=== PATIENT | male | born 1940 | race Caucasian/White ===

== ENCOUNTER 2020-03-10 13:46 | Outpatient (CLI) | payer MEDICARE, SELFPAY ==
--- NOTE | ~2020-03-10 | XR_ITS ---
EXAMINATION: XR chest 2V DATE: 03/10/2020 15:39 INDICATION: Preoperative evaluation with cardiovascular risk factor of hypertension. TECHNIQUE: PA and lateral views of the chest were obtained. COMPARISON: None FINDINGS: Elevation of the left hemidiaphragm with streaky atelectasis/scarring at the lingula. Right lung is c lear. No pulmonary edema, pleural effusion or pneumothorax. The cardiomediastinal silhouette is kala l. Atherosclerotic coronary artery calcification versus stenting. Mild thoracic kyphosis with mild sp ondylosis. IMPRESSION: 1. Atelectasis/scarring at the lingula with mild elevation of the left hemidiaphragm. Reviewed, dictated and finalized at location A. IMPRESSION: 1. Atelectasis/scarring at the lingula with mild elevation of the left hemidiap hragm.
--- NOTE | 2020-03-10 15:09 | ECG_ITS ---
Measurements Intervals [place] Rate: 58 P: 10 SD: 262 QRS: -45 QRSD: 144 T: 30 QT: 426 QTc: 420 Interpretive Statements SINUS BRADYCARDIA WITH FIRST DEGREE AV BLOCK RIGHT BUNDLE BRANCH BLOCK LEFT ANTERIOR FASCICULAR BLOCK VOLTAGE CRITERIA FOR LVH BASELINE ARTIFACT- I, II, III, AVR, AVL ABNORMAL ECG Electronically Signed On 03-10-2020 15:52:07 CDT by Rod Maldonado D.O.
[2020-03-10 15:31] LABS: Basophils Percent Auto 0.4 % (0.2-1.2); Eosinophils Absolute Auto 0.1 K/mm3 (0-0.3); Eosinophils Percent Auto 2.1 % (0-4.4); Hematocrit 46.1 % (42.0-52.0); Immature Granulocyte Absolute 0.01 K/mm3 (0.00-0.031); Immature Granulocyte Percent A 0.2 % (0-0.5); Lymphocytes Absolute Auto 1.47 K/mm3 (0.9-3.2); Lymphocytes Percent Auto 28.1 % (18.3-44.2); Mean Corpuscular HGB Conc 34.7 g/dl (32-36); Mean Corpuscular Hemoglobin 33.5 pg (26-34); Mean Corpuscular Volume 96.4 fl (80-100); Mean Platelet Volume 9.4 fl (7.4-10.4); Monocytes Absolute Auto 0.5 K/mm3 (0.1-0.6); Monocytes Percent Auto 10.3 % (2.6-8.5); Neutrophils Absolute Auto 3.1 K/mm3 (1.3-6.7); Neutrophils Percent Auto 58.9 % (45.5-73.1); Platelet Count Result 157 k/mm3 (150-375); Red Blood Count 4.78 M/mm3 (4.6-6.20); Red Cell Distribution Width 12.6 % (11.5-14.5); White Blood Count 5.2 K/mm3 (4.5-10.0)
[2020-03-10 15:43] LABS: Urine Cotinine NEGATIVE
[2020-03-10 15:43] LABS: Albumin Level 4.6 g/dL (3.5-5.1); Anion Gap 9 mmol/L (8-16); Blood Urea Nitrogen 20 mg/dL (9-20); Calcium 9.8 mg/dL (8.4-10.2); Carbon Dioxide 26 mmol/L (22-30); Chloride 101 mmol/L (98-107); Estimated Glomerular Filt Rate 58; Glucose 88 mg/dL (75-110); Potassium 4.9 mmol/L (3.4-5.0); Sodium 136 mmol/L (137-145)
[2020-03-10 16:15] LABS: Hemoglobin A1C 5.1 % (<5.7)
== END 2020-03-10 13:47 | disposition home or self-care (01) ==
PROVIDERS: PCP Family Medicine; Visit Provider Orthopaedic Surgery
DX: M16.12 Unilateral primary osteoarthritis, left hip (principal); Z01.818 Encounter for other preprocedural examination; R91.8 Other nonspecific abnormal finding of lung field; I45.10 Unspecified right bundle-branch block
CPT/HCPCS: 71046; 80048; 80307; 82040; 83036; 85025; 87070; 93005

== ENCOUNTER 2020-03-20 09:52 | Outpatient (CLI) | payer MEDICARE, SELFPAY ==
--- NOTE | 2020-03-20 | ECHO_ITS ---
Patient Info Name: Kev Taylor Age: 79 years : 1940 Gender: Male Ht: 69 in Wt: 195 lbs BSA: 2.10 m2 BP: 167 / 92 mmHg Exam Date: 03/20/2020 10:42 AM Exam Location: [facility] Patient Status: Outpatient Admit Date: 03/20/2020 Staff Ordering Physician: PHYSICIAN NOT ON STAFF, NONSTAFF Senior Medical Transcriptionist: Megan Rees RDCS Attending Provider: PHYSICIAN NOT ON STAFF, NONSTAFF Exam Type: CA echo doppler color flow Study Info Indications I35.0 - Nonrheumatic aortic (valve) stenosis Complete two-dimensional, color flow and Doppler transthoracic echocardiogram is performed. Summary 1. Complete two-dimensional, color flow and Doppler transthoracic echocardiogram is performed. 2. Left ventricular chamber dimension is normal. 3. Left ventricular systolic function is normal, estimated at 60-65%. 4. There is mildly increased left ventricular wall thickness. 5. The left ventricular diastolic function is grade I diastolic dysfunction. 6. E/e' 13 is mildly elevated. 7. Global longitudinal strain is abnormal at -15.0%. 8. Left atrial chamber dimension is mildly enlarged. 9. There is severe aortic valve sclerosis. 10. There is severe aortic valve stenosis with a peak velocity of 262 cm/s, mean gradient of 14 mmHg, and aortic valve area of 0.8 cm2. 11. There is mild aortic valve regurgitation. 12. There is mild to moderate mitral valve regurgitation. 13. There is mild tricuspid valve regurgitation. 14. No pulmonary hypertension, estimated pulmonary arterial systolic pressure is 35 mmHg. 15. There is trace pulmonic regurgitation. Left Ventricle E/e' 13 is mildly elevated. Global longitudinal strain is abnormal at -15.0%. Left ventricular chamber dimension is normal. Left ventricular systolic function is normal, estimated at 60-65%. There is mildly increased left ventricular wall thickness. The left ventricular diastolic function is grade I diastolic dysfunction. Right Ventricle Right ventricular chamber dimension is normal. Right ventricular systolic function is normal. Left Atria Left atrial chamber dimension is mildly enlarged. Right Atria Right atrial chamber dimension is normal. Aortic Valve The aortic valve is trileaflet. There is severe aortic valve sclerosis. There is severe aortic valve stenosis with a peak velocity of 262 cm/s, mean gradient of 14 mmHg, and aortic valve area of 0.8 cm2. There is mild aortic valve regurgitation. Pulmonic Valve There is trace pulmonic regurgitation. Mitral Valve There is no mitral valve stenosis. There is mild to moderate mitral valve regurgitation. Tricuspid Valve There is mild tricuspid valve regurgitation. No pulmonary hypertension, estimated pulmonary arterial systolic pressure is 35 mmHg. Pericardium/Pleural There is no pericardial effusion. Inferior Vena Cava Normal inferior vena cava with >50% collapse upon inspiration consistent with normal right atrial pressure, 5 mmHg. Aorta The aortic root size at the sinus of Valsalva is not well visualized. Left Ventricular Outflow Tract Name Value Normal LVOT 2D LVOT Diameter 2.0 cm LVOT Doppler
== END 2020-03-20 09:53 | disposition home or self-care (01) ==
PROVIDERS: PCP Family Medicine
DX: I35.1 Nonrheumatic aortic (valve) insufficiency (principal); I36.1 Nonrheumatic tricuspid (valve) insufficiency; I34.0 Nonrheumatic mitral (valve) insufficiency
CPT/HCPCS: 93306

== ENCOUNTER 2020-03-24 01:26 | Outpatient (CLI) | payer MEDICARE, SELFPAY ==
[2020-03-24 16:30] LABS: SARS-CoV-2 RNA PCR Negative
== END 2020-03-24 01:27 | disposition home or self-care (01) ==
LOC: ANHCOVIDDT 01:27
PROVIDERS: PCP Family Medicine; Visit Provider Orthopaedic Surgery
DX: Z01.812 Encounter for preprocedural laboratory examination (principal); Z20.828 Contact with and (suspected) exposure to other viral communicable diseases
CPT/HCPCS: 87635; C9803; U0003

== ENCOUNTER 2020-03-27 01:43 | Day surgery (SDC) | payer MEDICARE, SELFPAY ==
[2020-03-10 14:11] VITALS: BMI 29.9
[2020-03-10 14:13] VITALS: BP 144/74; PULSE 60; RESP 18; TEMP 37; O2SAT 98
--- NOTE | 2020-03-26 09:55 | P.PNAN_ITS ---
Anes - Eval Pre Procedure Procedure: Operation Date: 03/27/20 07:30 Proposed Procedures p Left Total Hip Arthroplasty, Anterior Approach - Twin Bernstein MD Date/Time: 03/26/20 09:55 Pre Op Diagnosis: OA left hip Patient Data Age: 79 Gender: M Height: 1.73 m Weight: 89.2 kg Last Vital Signs Temp 37.0 C 03/10/20 14:13 Pulse 60 03/10/20 14:13 Resp 18 03/10/20 14:13 BP 144/74 H 03/10/20 14:13 Pulse Ox 98 03/10/20 14:13 Allergies Allergy/AdvReac Type Severity Reaction Status Date / Time No Known Allergies Allergy Unverified 03/13/20 09:23 Home Medications Medication Instructions Recorded Confirmed Type rosuvastatin 10 mg tablet 10 mg PO DAILY #90 tablet 12/10/19 03/13/20 Rx omeprazole 20 mg capsule,delayed 20 mg PO DAILY #90 cap 02/29/20 03/13/20 Rx release L.acid-L.casei-B.bif-B.shady-FOS 1 cap PO DAILY 03/10/20 03/13/20 History [Probiotic Blend] amlodipine 10 mg PO QAM 03/10/20 03/13/20 History aspirin [Aspirin Low Dose] 81 mg PO DAILY 03/10/20 03/13/20 History celecoxib 200 mg PO DAILY PRN 03/10/20 03/13/20 History ferrous sulfate [iron] 325 mg PO DAILY 03/10/20 03/13/20 History lutein 20 mg PO DAILY 03/10/20 03/13/20 History omega-3 fatty acids [Fish Oil 1,000 mg PO DAILY 03/10/20 03/13/20 History Concentrate] oregano oil 1,500 mg PO DAILY 03/10/20 03/13/20 History tadalafil [Cialis] 5 mg PO DAILY PRN 03/10/20 03/13/20 History Patient hx anesthesia problems: none Family hx anesthesia problems: none PMFSH Past Medical History Medical History (Updated 03/26/20 @ 09:56 by Venkatesh Navarrete, [employer]) GERD (gastroesophageal reflux disease) HTN (hypertension) Mixed hyperlipidemia Nonrheumatic aortic (valve) stenosis Trigger finger (acquired) Surgical History Surgical History History of total left knee replacement History of total right hip arthroplasty Family History Family History Sibling Cerebrovascular accident Patient's brother is Social History Social History Social History: Single Smoking status: Never smoker Second hand tobacco smoke exposure: No Alcohol intake: current Drinks per week: 4 Substance use: never Substance use type: does not use Additional living arrangements comments: [employer] [employer] Gender identity (if verbalized by the patient): Male Spiritual care concerns: No Exam Day of Procedure 03/26/20 09:55
--- NOTE | 2020-03-26 15:09 | PM.IMHP ---
H&P: HPI History of Present Illness Date/Time: 03/26/20 15:09 Chief complaint: OA left hip Narrative: Kev Taylor is a 79 year old male Who presents at this time to undergo left total hip arthroplasty he has undergone right total hip arthroplasty in 2013 and has done well. He has also an [place] partial splint in left knee. He has gradually worsening symptoms this past year has been using a cane he is going to walking longer distances and has sharp pains periodically. Most the pain is in the anterior groin and anterior thigh and sometimes the anterolateral. Has been taking Celebrex chronically on a regular basis. His pain has worsened to the point that it has become disabling for him. He does have a history of tenderness of the lateral aspect of his left hip for many years since he had a hard fall directly on the greater trochanter and he has been unable to sleep on that side more than 30 min at a time ever since. He had x-rays in October which showed moderately severe type 1 osteoarthritis of the left hip radiographically. [facility] Past Medical History Medical History (Updated 03/26/20 @ 09:56 by Venkatesh Navarrete CRNA) GERD (gastroesophageal reflux disease) HTN (hypertension) Mixed hyperlipidemia Nonrheumatic aortic (valve) stenosis Trigger finger (acquired) Surgical History Surgical History History of total left knee replacement History of total right hip arthroplasty Family History Family History Sibling Cerebrovascular accident Patient's brother is Social History Social History Social History: Single Smoking status: Never smoker Second hand tobacco smoke exposure: No Alcohol intake: current Drinks per week: 4 Substance use: never Substance use type: does not use Additional living arrangements comments: [employer] Gender identity (if verbalized by the patient): Male Spiritual care concerns: No Meds Home Medications and Allergies Home Medications Medication Instructions Recorded Confirmed Type rosuvastatin 10 mg tablet 10 mg PO DAILY #90 tablet 12/10/19 03/13/20 Rx omeprazole 20 mg capsule,delayed 20 mg PO DAILY #90 cap 02/29/20 03/13/20 Rx release L.acid-L.casei-B.bif-B.shady-FOS 1 cap PO DAILY 03/10/20 03/13/20 History [Probiotic Blend] amlodipine 10 mg PO QAM 03/10/20 03/13/20 History aspirin [Aspirin Low Dose] 81 mg PO DAILY 03/10/20 03/13/20 History celecoxib 200 mg PO DAILY PRN 03/10/20 03/13/20 History ferrous sulfate [iron] 325 mg PO DAILY 03/10/20 03/13/20 History lutein 20 mg PO DAILY 03/10/20 03/13/20 History omega-3 fatty acids [Fish Oil 1,000 mg PO DAILY 03/10/20 03/13/20 History Concentrate] oregano oil 1,500 mg PO DAILY 03/10/20 03/13/20 History tadalafil [Cialis] 5 mg PO DAILY PRN 03/10/20 03/13/20 History Allergies Allergy/AdvReac Type Severity Reaction Status Date / Time No Known Allergies Allergy Unverified 03/13/20 09:23 Exam Narrative: Exam Narrative: On physical examination he is a pleasant gentleman in no acute distress he is alert oriented. He walked with a minimal limp at last visit, But had a pronounced start-up limp due to pain. Heart and lung auscultation will be documented on day of admission. He is 5 ft 8 in in height 200 lb. Flexion of the left hip was limited to 90? which caused anterolateral hip pain. Internal rotation to 0 external rotation to 30 cause lateral and anterolateral hip pain. With Stinchfield maneuver he complained of those pains as well as anterior thigh pain. In the side-lying position he had normal abduction strength and complained of soreness on lateral aspect of the hip and had mild tenderness over the greater trochanter. Range of motion of his left knee was 0-145 degrees without discomfort no effusion or tenderness pre
[2020-03-27] VITALS (14 sets, daily range): BP systolic 115–159; BP diastolic 46–77; PULSE 45–82; RESP 13–22; TEMP 36–37.7; O2SAT 93–100
--- NOTE | ~2020-03-27 | XR_ITS ---
EXAMINATION: XR hip LT 1V w AP pelvis EXAM DATE: 03/27/2020 11:09 INDICATION: Left hip anterior approach replacement. TECHNIQUE: Frontal portable postoperative projection pelvis, crosstable lateral projection left hip both obtained postoperatively. There is no prior study for comparison. FINDINGS: Status post bilateral hip replacements. There is left hip, surgical bed postoperative gas and an anterolateral surgical drain. Left hip hardware is in position. No pelvic fracture. IMPRESSION: Postoperative left hip, hardware in position. Reviewed, dictated and finalized at location B.
--- NOTE | ~2020-03-27 | XR_ITS ---
EXAMINATION: XR surgery orthopedic EXAM DATE: 03/27/2020 11:10 INDICATION: Left hip replacement. TECHNIQUE: Fluoroscopy used during XR surgery orthopedic performed by Dr. Twin Bernstein MD. The DAP for this procedure was 0.25 mGym2. FINDINGS: Frontal image demonstrates left hip replacement, hardware in expected position. Correlate with procedure note. IMPRESSION: Fluoroscopy used during left hip replacement. Reviewed, dictated and finalized at location B.
[2020-03-27] MEDS: LACTATED RINGERS 1,000 ML 30 ML IV CONT ×2 (06:30→10:55)
[2020-03-27] MEDS: TRANEXAMIC ACID 1,000MG/ISO100 1,000 MG/100 ML BAG 200 MG IVPB (06:30)
--- NOTE | 2020-03-27 06:30 | WPDANESEPPF ---
Anes - Initial Pre Proc Eval Procedure: Operation Date: 03/27/20 07:30 Proposed Procedures p Left Total Hip Arthroplasty, Anterior Approach - Twin Bernstein MD Date/Time: 03/27/20 06:30 Surgeon: Twin Bernstein MD Pre Op Diagnosis: OA left hip Patient Data Age: 79 Gender: M Height: 1.73 m Weight: 89.2 kg Last Vital Signs Temp 37.0 C 03/10/20 14:13 Pulse 60 03/10/20 14:13 Resp 18 03/10/20 14:13 BP 144/74 H 03/10/20 14:13 Pulse Ox 98 03/10/20 14:13 Allergies Allergy/AdvReac Type Severity Reaction Status Date / Time No Known Allergies Allergy Unverified 03/13/20 09:23 Home Medications Medication Instructions Recorded Confirmed Type rosuvastatin 10 mg tablet 10 mg PO DAILY #90 tablet 12/10/19 03/13/20 Rx omeprazole 20 mg capsule,delayed 20 mg PO DAILY #90 cap 02/29/20 03/13/20 Rx release L.acid-L.casei-B.bif-B.shady-FOS 1 cap PO DAILY 03/10/20 03/13/20 History [Probiotic Blend] amlodipine 10 mg PO QAM 03/10/20 03/13/20 History aspirin [Aspirin Low Dose] 81 mg PO DAILY 03/10/20 03/13/20 History celecoxib 200 mg PO DAILY PRN 03/10/20 03/13/20 History ferrous sulfate [iron] 325 mg PO DAILY 03/10/20 03/13/20 History lutein 20 mg PO DAILY 03/10/20 03/13/20 History omega-3 fatty acids [Fish Oil 1,000 mg PO DAILY 03/10/20 03/13/20 History Concentrate] oregano oil 1,500 mg PO DAILY 03/10/20 03/13/20 History tadalafil [Cialis] 5 mg PO DAILY PRN 03/10/20 03/13/20 History Patient hx anesthesia problems: none Family hx anesthesia problems: none PMFSH Past Medical History Medical History (Updated 03/27/20 @ 06:40 by Tomas Centeno DO) GERD (gastroesophageal reflux disease) HTN (hypertension) Mixed hyperlipidemia Nonrheumatic aortic (valve) stenosis severe, 0.8 cm2, >4 METS Trigger finger (acquired) Surgical History Surgical History History of total left knee replacement History of total right hip arthroplasty Family History Family History Sibling Cerebrovascular accident Patient's brother is Social History Social History Social History: Single Smoking status: Never smoker Second hand tobacco smoke exposure: No Alcohol intake: current Drinks per week: 4 Substance use: never Substance use type: does not use Living arrangements: with family Additional living arrangements comments: [employer] Gender identity (if verbalized by the patient): Male Spiritual care concerns: No Anes - Eval Final PreProcedure Day of Procedure 03/27/20 06:30 Patient weight: overweight Heart: regular rate and rhythm Lungs: clear to auscultation and normal air movement Airway: Mallampati scale class III Neurological: alert and oriented Last oral intake: >/= 8 hours ASA classification: III Emergent: no Anesthetic plan: proceed Anesthesia type and monitoring: general ETT and standard monitoring Informed Consent: The patient's anesthetic plan and its attendant risks and benefits were discussed with the patient/family/POA. Questions were solicited and answers provided to the satisfaction of the patient/family/POA.
[2020-03-27] MEDS: ACETAMINOPHEN 500 MG TABLET 1000 MG PO ×3 (06:35→17:27)
--- NOTE | 2020-03-27 07:16 | WPDHPUPDATE1 ---
History and Physical Update Update Date/Time: 03/27/20 07:16 History and Physical has been reviewed, including an updated exam of the patient. There are NO changes in the patient's condition. Risks, benefits, and alternatives have been discussed and questions answered. Patient agrees to proceed with procedure.
[2020-03-27] MEDS: ceFAZolin 2 GM/D5W 50 ML 2 GM/50 ML BAG IVPB (07:23)
[2020-03-27] MEDS: ceFAZolin SODIUM 1 GM VIAL 3 GM IRRIGATION (08:11)
[2020-03-27] MEDS: ceFAZolin SODIUM 1 GM VIAL IV PUSH (10:26)
[2020-03-27] MEDS: TRANEXAMIC ACID 1,000 MG/10 ML AMPUL 1000 MG IV PUSH (10:26)
--- NOTE | 2020-03-27 10:45 | PM.PROC ---
Procedure Note - Detailed Date of procedure: 03/27/20 Pre-op diagnosis: OA left hip Procedure performed: Left total hip arthroplasty direct anterior approach Description of procedure: patient was brought to the operating room and general anesthesia was administered. He received 2 g of Ancef weight based vancomycin 1 g of tranexamic acid preoperatively. The feet were padded and boots applied and [facility] the [facility] hip prepped draped usual fashion. Pearce catheter was placed. A 10 cm longitudinal incision was made starting about 2 cm lateral to the ASIS extending distally. Dissection was carried down through the subcutaneous fat in the nerve branches were elevated off the fascia over the tensor fascia demetrio muscle and the fascia was divided and elevated off the anterior 1/2 of the tensor fascia demetrio muscle. Interval between the rectus femoris and the tensor fascia demetrio was developed. Crossing bundle of vessels from ascending lateral femoral circumflex were ligated with suture and divided. The anterior capsule was exposed retractor placed. The hip was abducted and internally rotated and the gluteus minimus muscle which was somewhat atrophied was elevated off the lateral capsule. The gluteus minimus tendon was somewhat degenerative in appearance and diminutive. Gluteus medius muscle at excellent bulk and color. Minimus had significant fatty infiltration. Anterior capsulotomy was performed femoral neck osteotomy made according to preop templating. The napkin ring of bone was removed and the femoral head was removed without difficulty. It measured 54-1/2 mm in diameter. The acetabulum was exposed and labrum excised. The fat pad in the fovea excised and hemostasis achieved. The Aquamantys device was utilized in the hopes of minimizing blood loss. The leg was externally rotated and extended and the interval between the piriformis tendon and conjoined tendon was incised allowing some of the conjoined tendon to recess. This gave adequate mobility without releasing the piriformis tendon. The leg back in the horizontal position and external rotation the acetabulum was prepared. Reaming up to 40 mm we did not quite reach the periphery of the acetabulum. The acetabulum was therefore reamed to 55 mm and the 55 trial was quite tight. The periphery was reamed with the 56 mm and we chose the 56 Biomet G7 cup which impacted with a very tight fit but achieved full seating and this was placed under fluoroscopic guidance at 40? of abduction and the anteversion such that the anterior shell was a mm or 2 and the anterior wall the posterior shell was about 3 or 4 mm proud of the posterior wall inferiorly. Full seating was confirmed and a single screw placed in the ilium for additional fixation. The insertion handle hole cap was placed and a 36 mm inner diameter polyethylene liner fully seated. The leg was externally rotated and extended and the femur was broached up to a size 14. Torsional stability was excellent already at size 12 as the cancellous bone quality was very good. We took an x-ray and with the 0 head we confirmed that we had the appropriate height to the component equal leg lengths. We had the appropriate stability at that position as well. The hip was dislocated and the medial neck calcar planed for reference to the height of the broach. I found I could easily countersink the broach further and we inserted the 15 which I could countersink an 8th of an inch with no obvious endpoint therefore we went up size 16 which broached to a point flush with the neck cut would go no further. We chose the size 16 taper lock high offset stem and this was impacted and when in with a snug fit coming to rest about 2.5 mm above the level of the calcar planed neck. It would go no further. We had complete torsional stability as well as axial stability. I trialed with the 0 head and I found it to be a little bit tight. We trialed with a -3 head and jennifer
[2020-03-27] MEDS: fentaNYL CITRATE INJ (*CRX) 100 MCG/2 ML VIAL 25 MCG IV PUSH ×3 (11:40→12:01)
[2020-03-27] MEDS: ONDANSETRON INJ 4 MG/2 ML VIAL IV PUSH ×2 (12:50→20:54)
[2020-03-27] MEDS: oxyCODONE HCL (*CRX) 5 MG TAB IR PO ×3 (12:51→20:55)
[2020-03-27 13:01] LABS: Hematocrit 41.2 % (42.0-52.0); Hemoglobin 14.3 g/dL (14.0-18.0)
[2020-03-27 13:14] LABS: Estimated CRCL calculation 57 ml/min; Estimated Glomerular Filt Rate > 60
--- NOTE | 2020-03-27 15:30 | PM.IMCN ---
Assessment and Plan Assessment and plan (1) Hip arthritis: Code(s): M16.10 - Unilateral primary osteoarthritis, unspecified hip Status: Acute Assessment and Plan: Kev Taylor is a 79 year old male With no significant past medical history other than severe osteoarthritis of left hip and patient failed conservative management pain was getting worse had a difficulty ambulation, patient was seen by his surgeon and was taken to OR today and patient had a left hip total arthroplasty, the pain is controlled, denies any chest pain shortness of breath palpitation fever or chills, in to participate in physical therapy, patient be seen by his surgeon and further recommendation to follow (2) GERD (gastroesophageal reflux disease): Code(s): K21.9 - Gastro-esophageal reflux disease without esophagitis Status: Acute Assessment and Plan: will continue PPI (3) Nonrheumatic aortic (valve) stenosis: Code(s): I35.0 - Nonrheumatic aortic (valve) stenosis Status: Acute Assessment and Plan: patient is clinically stable Additional Plan DVT prophylaxis per his surgeon HPI Data of Consult Consult date: 03/27/20 Requesting Physician: Twin Bernstein MD Primary Care Provider: Lisa Carrasco MD Consult Narrative Narrative: Kev Taylor is a 79 year old male With no significant past medical history other than severe osteoarthritis of left hip and patient failed conservative management pain was getting worse had a difficulty ambulation, patient was seen by his surgeon and was taken to OR today and patient had a left hip total arthroplasty, the pain is controlled, denies any chest pain shortness of breath palpitation fever or chills, in to participate in physical therapy, patient be seen by his surgeon and further recommendation to follow Review of Systems Review of Systems: All systems reviewed & are unremarkable except as noted in HPI and below PMFSH Past Medical History Medical History (Updated 03/27/20 @ 06:40 by Tomas Centeno DO) GERD (gastroesophageal reflux disease) HTN (hypertension) Mixed hyperlipidemia Nonrheumatic aortic (valve) stenosis severe, 0.8 cm2, >4 METS Trigger finger (acquired) Surgical History Surgical History History of total left knee replacement History of total right hip arthroplasty Family History Family History Sibling Cerebrovascular accident Patient's brother is Social History Social History Social History: Single Smoking status: Never smoker Second hand tobacco smoke exposure: No Alcohol intake: current Drinks per week: 4 Substance use: never Substance use type: does not use Living arrangements: with family Additional living arrangements comments: [employer] Gender identity (if verbalized by the patient): Male Spiritual care concerns: No Meds Home Medications and Allergies Home Medications Medication Instructions Recorded Confirmed Type rosuvastatin 10 mg tablet 10 mg PO DAILY #90 tablet 12/10/19 03/27/20 Rx omeprazole 20 mg capsule,delayed 20 mg PO DAILY #90 cap 02/29/20 03/27/20 Rx release L.acid-L.casei-B.bif-B.shady-FOS 1 cap PO DAILY 03/10/20 03/27/20 History [Probiotic Blend] amlodipine 10 mg PO QAM 03/10/20 03/27/20 History aspirin [Aspirin Low Dose] 81 mg PO DAILY 03/10/20 03/27/20 History celecoxib 200 mg PO DAILY PRN 03/10/20 03/27/20 History ferrous sulfate [iron] 325 mg PO DAILY 03/10/20 03/27/20 History lutein 20 mg PO DAILY 03/10/20 03/27/20 History omega-3 fatty acids [Fish Oil 1,000 mg PO DAILY 03/10/20 03/27/20 History Concentrate] oregano oil 1,500 mg PO DAILY 03/10/20 03/27/20 History tadalafil [Cialis] 5 mg PO DAILY PRN 03/10/20 03/27/20 History Allergies Wander
[2020-03-27] MEDS: SENNA/DOCUSATE SODIUM TABLET 2 TAB PO (17:28)
[2020-03-27] MEDS: FAMOTIDINE 20 MG TABLET PO (20:55)
[2020-03-28] VITALS: BP 144/60; PULSE 65; PULSE 73; RESP 20; TEMP 37.3; O2SAT 98
[2020-03-28] MEDS: ACETAMINOPHEN 500 MG TABLET 1000 MG PO ×4 (00:32→17:20)
[2020-03-28] MEDS: oxyCODONE HCL (*CRX) 5 MG TAB IR PO ×5 (00:32→17:20)
--- NOTE | 2020-03-28 02:00 | ECG_ITS ---
Measurements Intervals [place] Rate: 54 P: VA: 0 QRS: -42 QRSD: 148 T: 24 QT: 427 QTc: 406 Interpretive Statements SINUS BRADYCARDIA WITH 2ND DEGREE AV BLOCK, MOBITZ TYPE I ([place]) LEFT AXIS DEVIATION RIGHT BUNDLE BRANCH BLOCK ATYPICAL ECG Electronically Signed On 03-28-2020 6:41:13 CDT by Rod Maldonado D.O.
--- NOTE | 2020-03-28 02:05 | PC.NURSE ---
DR. ZIMMERMAN INFORMED OF DYSRYTHMIA NOTED TO TELEMETY. EKG ORDERED
[2020-03-28 04:00] VITALS: BP 144/63; PULSE 50; PULSE 62; RESP 20; TEMP 37.8; O2SAT 95
[2020-03-28 04:01] LABS: Basophils Percent Auto 0.1 % (0.2-1.2); Hematocrit 37.8 % (42.0-52.0); Hemoglobin 13.2 g/dL (14.0-18.0); Immature Granulocyte Absolute 0.03 K/mm3 (0.00-0.031); Immature Granulocyte Percent A 0.3 % (0-0.5); Lymphocytes Absolute Auto 0.94 K/mm3 (0.9-3.2); Lymphocytes Percent Auto 9.7 % (18.3-44.2); Mean Corpuscular HGB Conc 34.9 g/dl (32-36); Mean Corpuscular Hemoglobin 34.2 pg (26-34); Mean Corpuscular Volume 97.9 fl (80-100); Mean Platelet Volume 9.6 fl (7.4-10.4); Monocytes Absolute Auto 0.8 K/mm3 (0.1-0.6); Monocytes Percent Auto 8.5 % (2.6-8.5); Neutrophils Absolute Auto 7.9 K/mm3 (1.3-6.7); Neutrophils Percent Auto 81.4 % (45.5-73.1); Platelet Count Result 119 k/mm3 (150-375); Red Blood Count 3.86 M/mm3 (4.6-6.20); Red Cell Distribution Width 12.5 % (11.5-14.5); White Blood Count 9.7 K/mm3 (4.5-10.0)
[2020-03-28 04:15] LABS: Anion Gap 6 mmol/L (8-16); Blood Urea Nitrogen 14 mg/dL (9-20); Calcium 8.9 mg/dL (8.4-10.2); Carbon Dioxide 29 mmol/L (22-30); Chloride 103 mmol/L (98-107); Estimated CRCL calculation 57 ml/min; Estimated Glomerular Filt Rate > 60; Glucose 136 mg/dL (75-110); Magnesium 1.6 mg/dL (1.6-2.3); Potassium 4.3 mmol/L (3.4-5.0); Sodium 138 mmol/L (137-145)
[2020-03-28 05:56] LABS: Vitamin D 25 Hydroxy 50.4 ng/mL
--- NOTE | 2020-03-28 06:35 | PM.PNORT ---
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 plan to send home today if ok with cardiology. pt states he hx of heart rate going down overnight at home to low 40s,again without symptoms. Subjective Subjective Date/Time Seen: 03/28/20 06:35 Objective Data Vital Signs Vital Signs: Vital Signs - 24 hr 03/27/20 10:55 03/27/20 11:10 03/27/20 11:15 Temperature 36.3 C L Pulse Rate 82 65 64 Respiratory Rate 15 16 19 Blood Pressure 115/71 136/71 126/73 Pulse Oximetry 98 100 98 03/27/20 11:30 03/27/20 11:45 03/27/20 12:00 Temperature Pulse Rate 52 L 50 L 56 L Respiratory Rate 22 H 18 13 Blood Pressure 128/65 131/46 L 123/64 Pulse Oximetry 96 93 93 03/27/20 12:26 03/27/20 12:41 03/27/20 13:11 Temperature 36.0 C L 36.1 C L 36.1 C L Pulse Rate 67 45 L 53 L Respiratory Rate 17 15 17 Blood Pressure 126/60 120/62 121/60 Pulse Oximetry 96 96 97 03/27/20 14:11 03/27/20 16:00 03/27/20 18:11 Temperature 36.9 C 37.2 C Pulse Rate 64 64 73 Respiratory Rate 13 15 Blood Pressure 126/57 L 130/71 Pulse Oximetry 99 95 03/27/20 20:00 03/28/20 00:00 03/28/20 04:00 Temperature 37.7 C H 37.3 C 37.8 C H Pulse Rate 56 L 73 62 Respiratory Rate 18 20 20 Blood Pressure 143/77 H 144/60 H 144/63 H Pulse Oximetry 93 98 95 Intake/Output Intake/Output: Intake & Output 03/25/20 03/26/20 03/27/20 03/28/20 23:59 23:59 23:59 23:59 Intake Total 1840 300 Output Total 240 1875 Balance 1600 -1575 Meds/Results Medications: Active Medications Generic Name Dose Route Start Last Admin Trade Name Freq PRN Reason Stop Dose Admin Acetaminophen 1,000 mg 03/27/20 12:26 03/28/20 05:30 Tylenol Tablet PO 1,000 mg Q6HR BROOKS Administration Al Hydrox/Mg Hydrox/Simethicone 30 ml 03/27/20 12:26 Mylanta PO Q6H PRN Indigestion Amlodipine Besylate 10 mg 03/28/20 09:00 Norvasc PO QAM BROOKS Apixaban 2.5 mg 03/28/20 09:00 Eliquis PO Q12HR BROOKS Famotidine 20 mg 03/27/20 21:00 03/27/20 20:55 Pepcid PO 20 mg Q12HR BROOKS Administration Hydroxyzine HCl 50 mg 03/27/20 12:26 Atarax Tablet PO Q4H PRN Itching Vancomycin HCl 1,000 mg in 250 mls @ 250 mls/hr 03/27/20 18:00 03/28/20 05:31 Vancomycin 1,000 Mg/D5w 250 Ml IVPB 03/28/20 06:59 250 mls/hr Q12H BROOKS Administration Cefazolin Sodium 1 gm in 50 mls @ 100 mls/hr 03/27/20 15:00 03/28/20 06:34 Ancef 1 Gm/D5w 50 Ml Pm IVPB 03/28/20 07:29 100 mls/hr Q8H BROOKS Administration Magnesium Hydroxide 30 ml 03/27/20 12:26 Milk Of Magnesia PO BID PRN Constipation Morphine Sulfate 2 mg 03/27/20 12:26 Morphine Sulfate Inj (*Crx) IV PUSH Q3H PRN Pain Rated 7-10 Naloxone HCl 0.1 mg 03/27/20 12:26 Narcan IV PUSH Q2M PRN Opiate Reversal Non-Formulary Medication 20 mg 03/28/20 09:00 Lutein PO 04/27/20 09:01 DAILY [facility] Ondansetron HCl 4 mg 03/27/20 12:26 03/27/20 20:54 Zofran Inj IV PUSH 4 mg Q4H PRN Administration Nausea And Vomiting Oxycodone HCl 5 mg 03/27/20 13:00 03/28/20 05:30 Roxicodone Ir Tablet PO 5 mg Q4HR BROOKS Administration Oxycodone HCl 5 mg 03/27/20 12:26 Roxicodone Ir Tablet PO Q4H PRN Pain Rated 4-6 Polyethylene Glycol 17 gm 03/28/20 09:00 Miralax PO QAM BROOKS Rosuvastatin Calcium 10 mg 03/28/20 09:00 Crestor PO DAILY BROOKS Senna/Docusate Sodium 2 tab 03/27/20 17:00 03/27/20 17:28 Senokot S Tablet PO 2 tab BID BROOKS Administration Radiology Results: ITS Impressions Hip/Pelvis X-Ray 03/27/20 11:19 IMPRESSION: Postoperative left hip, hardware in position. Intraoperative X-Ray 03/27/20 11:23 IMPRESSION: Fluoroscopy used during le
--- NOTE | 2020-03-28 06:42 | PM.DS ---
DS: Admitting Diagnosis Admitting Diagnosis Admitting Diagnosis: OA left hip DS: Summary Time Spent with Patient Time attestation: 79-year-old male who underwent a left anterior total hip arthroplasty on 03/27/2020. Underwent the procedure without complications. Overnight patient's heart rhythm went from a normal sinus rhythm to a second-degree block. Hospitalist was notified. Patient was asymptomatic, he was having no chest pain shortness of breath. Patient does note that overnight he is noticed at home that his heart rate does tend to drop into the low 40s. Patient had EKG as well as electrolytes checked with the rhythm changed. These were normal as far as electrolytes. Again patient remained asymptomatic. Otherwise postoperatively patient has been afebrile vital signs stable neurovascular intact his wound is dry. He is weight-bearing as tolerated with a walker for the 1st month. He is on Eliquis 5 weeks for DVT prophylaxis he is on schedule Tylenol as well as oxycodone 5s pain control. We are not using Celebrex on him because of his cardiac history. We will have Cardiology evaluate him prior to his discharge today. Patient was advised he needs to follow-up with his soldering machine operator automatic for re-evaluation. Patient was advised to keep the leg elevated home prevent swelling. He will be sent home on Senokot as well as MiraLax for constipation. Patient was advised any questions or concerns once he goes home he should call the office otherwise will see him at his appointment date. DS: Data Data Completed and Pending Labs on day of discharge: Labs from last 24 hours 03/28/20 03/28/20 03/28/20 03:55 03:55 03:55 WBC 9.7 RBC 3.86 L Hgb 13.2 L Hct 37.8 L MCV 97.9 MCH 34.2 H MCHC 34.9 RDW 12.5 Plt Count 119 L MPV 9.6 Immature Gran % (Auto) 0.3 Neut % (Auto) 81.4 H Lymph % (Auto) 9.7 L [place] % (Auto) 8.5 Eos % (Auto) 0.0 Baso % (Auto) 0.1 L Lymph # (Auto) 0.94 [place] # (Auto) 0.8 H Eos # (Auto) 0.0 Baso # (Auto) 0.0 Abs Immat Gran (auto) 0.03 Absolute Neuts (auto) 7.9 H Absolute Nucleated RBC 0.0 Nucleated RBC % 0.0 Sodium 138 Potassium 4.3 Chloride 103 Carbon Dioxide 29 Anion Gap 6 L BUN 14 D Creatinine 1.00 Estim Creat Clear Calc 57 Estimated GFR > 60 Glucose 136 H Calcium 8.9 Magnesium 1.6 Vitamin D 25-Hydroxy 50.4 Blood Type Antibody Screen 03/27/20 03/27/20 03/27/20 12:55 12:55 06:25 WBC RBC Hgb 14.3 Hct 41.2 L MCV MCH MCHC RDW Plt Count MPV Immature Gran % (Auto) Neut % (Auto) Lymph % (Auto) [place] % (Auto) Eos % (Auto) Baso % (Auto) Lymph # (Auto) [place] # (Auto) Eos # (Auto) Baso # (Auto) Abs Immat Gran (auto) Absolute Neuts (auto) Absolute Nucleated RBC Nucleated RBC % Sodium Potassium Chloride Carbon Dioxide Anion Gap BUN Creatinine 1.00 Estim Creat Clear Calc 57 Estimated GFR > 60 Glucose Calcium Magnesium Vitamin D 25-Hydroxy Blood Type O Positive Antibody Screen Negative Discharge Plan Discharge Patient Disposition: Home, Self-Care Discharge Instructions: RANDY VENTURA M.D [facility] [address] [place], [place] [id number] POST-OPERATIVE DISCHARGE INSTRUCTIONS ANTERIOR TOTAL HIP ARTHROPLASTY 1. Move toes/feet up and down every hour while awake. 2. Be up walking every hour while awake. 3. Use cane in hand opposite of side of hip surgery or walker as comfort allows. Avoid sitting in a chair unless eating, receiving visitors or using the toilet. 4. When resting, lie on back with leg elevated above heart to minimize swelling. Significant swelling could indicate a blood clot and if this occurs, call the office (or go to the ER) to have a venous ultrasound performed. 5. Wound Car
--- NOTE | 2020-03-28 07:26 | PC.NURSE ---
[id number] [facility] for dr. das consult. awaiting call back
--- NOTE | 2020-03-28 07:40 | WPDANESPN ---
Anes - Prog Note Post-Op Date/Time: 03/28/20 07:40 Cardiovascular status: normal Respiratory status: normal Airway patency: baseline Mental status: baseline Post-Op hydration status: normal Vital Signs: Last Vital Signs Temp 37.8 C H 03/28/20 04:00 Pulse 62 03/28/20 04:00 Resp 20 03/28/20 04:00 BP 144/63 H 03/28/20 04:00 Pulse Ox 95 03/28/20 04:00 Pain Score (VAS): 2 I/O: Intake & Output 03/27/20 03/27/20 03/28/20 15:59 23:59 07:59 Intake Total 600 940 600 Output Total 240 1875 Balance 600 700 -1275 Laboratory Tests 03/28/20 03:55 03/28/20 03:55 03/27/20 03/27/20 03/28/20 12:55 12:55 03:55 WBC 9.7 RBC 3.86 L Hgb 14.3 13.2 L Hct 41.2 L 37.8 L MCV 97.9 MCH 34.2 H MCHC 34.9 RDW 12.5 Plt Count 119 L MPV 9.6 Immature Gran % (Auto) 0.3 Neut % (Auto) 81.4 H Lymph % (Auto) 9.7 L [place] % (Auto) 8.5 Eos % (Auto) 0.0 Baso % (Auto) 0.1 L Lymph # (Auto) 0.94 [place] # (Auto) 0.8 H Eos # (Auto) 0.0 Baso # (Auto) 0.0 Abs Immat Gran (auto) 0.03 Absolute Neuts (auto) 7.9 H Absolute Nucleated RBC 0.0 Nucleated RBC % 0.0 Sodium Potassium Chloride Carbon Dioxide Anion Gap BUN Creatinine 1.00 Estim Creat Clear Calc 57 Estimated GFR > 60 Glucose Calcium Magnesium Vitamin D 25-Hydroxy 03/28/20 03/28/20 03:55 03:55 WBC RBC Hgb Hct MCV MCH MCHC RDW Plt Count MPV Immature Gran % (Auto) Neut % (Auto) Lymph % (Auto) [place] % (Auto) Eos % (Auto) Baso % (Auto) Lymph # (Auto) [place] # (Auto) Eos # (Auto) Baso # (Auto) Abs Immat Gran (auto) Absolute Neuts (auto) Absolute Nucleated RBC Nucleated RBC % Sodium 138 Potassium 4.3 Chloride 103 Carbon Dioxide 29 Anion Gap 6 L BUN 14 D Creatinine 1.00 Estim Creat Clear Calc 57 Estimated GFR > 60 Glucose 136 H Calcium 8.9 Magnesium 1.6 Vitamin D 25-Hydroxy 50.4 Post-procedural complaints: none Patient Feedback: Patient satisfied with anesthetic care.
[2020-03-28 08:00] VITALS: PULSE 85
--- NOTE | 2020-03-28 09:03 | ECG_ITS ---
Measurements Intervals [place] Rate: 52 P: [place]: 0 QRS: -43 QRSD: 154 T: 33 QT: 432 QTc: 404 Interpretive Statements SINUS BRADYCARDIA WITH 2ND DEGREE AV BLOCK, MOBITZ TYPE I (WENKEBACH) LEFT AXIS DEVIATION RIGHT BUNDLE BRANCH BLOCK BASELINE ARTIFACT- V6 ABNORMAL ECG Electronically Signed On 03-28-2020 10:38:11 CDT by Rod Maldonado D.O.
--- NOTE | 2020-03-28 09:05 | PC.NURSE ---
Spoke to Dr. Car in regards to patients telemetry concerns. Patient appears to have more ST elevation than earlier this morning. Also updated that patient's rhythm overnight appears to have went into second degree heartblock. Jennifer Nina was notified of consult at 0810. Also notified Jennifer Nina NP at 0900 of patients rhythm appearing to have more ST elevation.
[2020-03-28] MEDS: FAMOTIDINE 20 MG TABLET PO (09:34)
[2020-03-28] MEDS: SENNA/DOCUSATE SODIUM TABLET 2 TAB PO ×2 (09:34→17:19)
[2020-03-28] MEDS: ROSUVASTATIN 10 MG TABLET PO (09:34)
[2020-03-28] MEDS: polyethylene glycoL 3350 17 GM POWD.PACK PO (09:34)
[2020-03-28] MEDS: APIXABAN 2.5 MG TABLET PO (09:35)
[2020-03-28 10:04] LABS: Troponin I < 0.012 ng/mL (0.000-0.034)
[2020-03-28 12:00] VITALS: PULSE 48
[2020-03-28 12:11] LABS: Troponin I < 0.012 ng/mL (0.000-0.034)
[2020-03-28] MEDS: MAG HYDROX/AL HYDROX/SIMETH 30 ML UDC PO (13:00)
[2020-03-28 14:11] VITALS: BP 107/56; PULSE 67; RESP 14; TEMP 36.9; O2SAT 95
[2020-03-28 16:00] VITALS: PULSE 57
[2020-03-28 16:08] LABS: Troponin I < 0.012 ng/mL (0.000-0.034)
--- NOTE | 2020-03-28 18:04 | WPDCN ---
Assessment and Plan Assessment and plan (1) Second degree AV block, Mobitz type I: Code(s): I44.1 - Atrioventricular block, second degree Status: Acute Assessment and Plan: The patient demonstrated second-degree AV block, Wenckebach type, yesterday and this morning which has been asymptomatic. He did have 2:1 AV block as well, but again asymptomatic. Unclear how much of this Is situational, being postop, or how much of this may be baseline. Likely he has progressive conduction system disease and likely he will progress over time and eventually need a pacemaker (probably sooner than he expects) but I think he can be discharged and follow up with his regular cardiologists for now. I discussed the patient's conduction issues with him and signs and symptoms of progression, when to follow-up with his broaching machine operator etc. The patient was given a copy of his EKG and urged to follow-up with Dr. Self in the next 2 or 3 weeks. 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 (3) Nonrheumatic aortic (valve) stenosis: Code(s): I35.0 - Nonrheumatic aortic (valve) stenosis Status: Acute Assessment and Plan: Aortic stenosis, said to be severe on the recent echo but the mean gradient and velocity through the valve suggest mild and exam suggests less than severe aortic stenosis. Asymptomatic, recommend he continue to follow-up with his cardiologists on a regular basis. Reviewed signs and symptoms of progressive aortic valve disease. HPI Data of Consult Date/Time: 03/28/20 18:04 Requesting Physician: Twin Bernstein MD Primary Care Provider: Lisa Carrasco MD Consult Narrative Narrative: date of service: 03/28/2020 Kev Taylor is a 79 year old male whom I was asked to see by the hospitalist for my advice and opinion regarding postop bradycardia and second-degree AV block , in consultation. The patient has a broaching machine operator at [facility], Dr. Ruslan Silva, and also broaching machine operator in [place]. He is followed for aortic stenosis and apparently has a history of 1st degree AVB/ RBBB/LAFB. the patient underwent total hip arthroplasty yesterday by Dr. Smallwood but was noted to have episodes of bradycardia and second-degree AV block type 1 (Wenckebach ). Through the night sometimes he was in 2-1 block but today he is up and out of bed, in sinus rhythm for the most part. There been no pauses. Lowest heart rate has been about 40 BPM. The patient has had no dizziness, syncope or falls recently. A couple years ago he was evaluated for syncope and a medication change was made. He also has a degree of aortic stenosis but is active, golfing and taking care of yard work with no chest pain or shortness of breath. He does feel some POWELL if he is doing more extreme activity. He has hypertension and hyperlipidemia. Dr. Suárez consult note reviewed fr 02/2020. Review of Systems Constitutional: Constitutional: Denies lethargy and Denies weakness Eyes: Eyes: Reports no additional eye complaints ENT: Denies epistaxis Cardiovascular: Cardiovascular: Denies chest pain, Denies pedal edema, Denies lightheadedness and Denies palpitations Respiratory: Respiratory: Denies hemoptysis, Denies dyspnea and Reports dyspnea on exertion Gastrointestinal: Gastrointestinal: Denies abdominal pain and Denies hematochezia Genitourinary: Genitourinary: Denies hematuria Musculoskeletal: Musculoskeletal: Reports arthralgias Integumentary/Breasts: Skin/Breast: Denies rash Neurologic: Denies confusion Psychiatric: Psychiatric: Reports no additional psychiatric complaints PMFSH Past Medical History Medi
--- NOTE | 2020-03-28 18:45 | PM.IMPN ---
Progress Note: A&P Assessment and Plan (1) Hip arthritis: Code(s): M16.10 - Unilateral primary osteoarthritis, unspecified hip Status: Acute Assessment and Plan: 03/28/20 18:45 Kev Taylor is a 79 year old male With no significant past medical history other than severe osteoarthritis of left hip and patient failed conservative management pain was getting worse had a difficulty ambulation, patient was seen by his surgeon and was taken to OR on 03/27 and patient had a left hip total arthroplasty, the pain is controlled, denies any chest pain shortness of breath palpitation fever or chills, in to participate in physical therapy, patient be seen by his surgeon and further recommendation to follow, Today 03/28 patient showed bradycardia on telemetry and remains asymptomatic, and was seen by machine tender does not recommend any further workup as patient has no symptoms and is clinically stable will discharge the patient home today (2) GERD (gastroesophageal reflux disease): Code(s): K21.9 - Gastro-esophageal reflux disease without esophagitis Status: Acute Assessment and Plan: will continue PPI (3) Nonrheumatic aortic (valve) stenosis: Code(s): I35.0 - Nonrheumatic aortic (valve) stenosis Status: Acute Assessment and Plan: patient is clinically stable Subjective Date/time seen: 03/28/20 18:45 Kev Taylor is a 79 year old male With no significant past medical history other than severe osteoarthritis of left hip and patient failed conservative management pain was getting worse had a difficulty ambulation, patient was seen by his surgeon and was taken to OR on 03/27 and patient had a left hip total arthroplasty, the pain is controlled, denies any chest pain shortness of breath palpitation fever or chills, in to participate in physical therapy, patient be seen by his surgeon and further recommendation to follow, Today 03/28 patient showed bradycardia on telemetry and remains asymptomatic, and was seen by machine tender does not recommend any further workup as patient has no symptoms and is clinically stable will discharge the patient home today Review of Systems Review of Systems: All systems reviewed & are unremarkable except as noted in HPI and below Exam Const: General: comfortable and no acute distress HENMT: General nose exam: Normal nares present Eyes: Sclera: sclerae normal Neck: Neck: supple Resp: Effort & Inspection: normal respiratory effort Auscultation: clear to auscultation bilaterally Cardio: Rate: regular rate Rhythm: regular rhythm GI: Auscultation: normal bowel sounds Skin: General skin exam: normal color Neuro: Speech: normal speech Sensory Exam: normal sensation Extrem: General: normal to inspection Psych: Affect: Anxious affect present Objective Data Vital Signs Vital Signs: Vital Signs - 24 hr 03/27/20 20:00 03/28/20 00:00 03/28/20 04:00 Temperature 99.9 F H 99.1 F 100.1 F H Pulse Rate 56 L 73 62 Respiratory Rate 18 20 20 Blood Pressure 143/77 H 144/60 H 144/63 H Pulse Oximetry 93 98 95 03/28/20 08:00 03/28/20 12:00 03/28/20 14:11 Temperature 98.5 F Pulse Rate 85 48 L 67 Respiratory Rate 14 Blood Pressure 107/56 L Pulse Oximetry 95 03/28/20 16:00 Temperature Pulse Rate 57 L Respiratory Rate Blood Pressure Pulse Oximetry Intake/Output Intake/Output: Intake & Output 03/25/20 03/26/20 03/27/20 03/28/20 23:59 23:59 23:59 23:59 Intake Total 1840 1640 Output Total 240 2375 Balance 1600 -735 Meds/Results Medications: Active Medications Generic Name Dose Route Start Last Admin Trade Name Freq PRN Reason Stop Dose Admin Acetaminophen 1,000 mg 03/27/20 12:26 03/28/20 17:20 Tylenol Tablet PO 1,000 mg Q6HR BROOKS Administration Al Hydrox/Mg Hydrox/Simethicone 30 ml 03/27/20 12:26 03/28/20 13:00 Mylanta PO 30 ml Q6H PRN Administration Indigestion Amlodi
== END 2020-03-28 19:00 | disposition home or self-care (01) ==
LOC: ANHSURGERY 05:53 → ANH2MED 12:27
PROVIDERS: Family Medicine; Internal Medicine; Physician Assistant Surgical; PCP Family Medicine; Visit Provider Orthopaedic Surgery
PROC: (CPT 27130; principal; 2020-03-27 07:30)
DX: M16.12 Unilateral primary osteoarthritis, left hip (principal); I44.1 Atrioventricular block, second degree; I45.3 Trifascicular block; I35.0 Nonrheumatic aortic (valve) stenosis; I10 Essential (primary) hypertension; E78.2 Mixed hyperlipidemia; K21.9 Gastro-esophageal reflux disease without esophagitis; Z79.82 Long term (current) use of aspirin
CPT/HCPCS: 27130; 36415; 73501; 80048; 82306; 82565; 83735; 84484; 85014; 85018; 85025; 86850; 86900; 86901; 93005; 97110; 97116; 97161; 97165; A9270; C1776; J0171; J0330; J0690; J1100; J2270; J2405; J2704; J2710; J2795; J3010; J3370; J7120